=== PATIENT | female | born 1945 | race Caucasian/White ===

== ENCOUNTER → 2017-03-25 | Outpatient (CLI) | payer OTHER, MEDICARE | LOC: FIMAGING 08:18 | PROVIDERS: ATTEND Otolaryngology | DX: K44.9 Diaphragmatic hernia without obstruction or gangrene (principal); K21.0 Gastro-esophageal reflux disease with esophagitis ==

== ENCOUNTER 2017-06-20 06:53 | Day surgery (SDC) | payer OTHER, MEDICARE ==
[~2017-06-20 06:53] MED LIST: VANCOMYCIN 1 GM in NS 250 ML IV ONE
[2017-06-20] MEDS ORDERED: LIDOCAINE 1% 300 MG/30 ML SDV ONE ×2 (07:36→09:50)
[2017-06-20] MEDS ORDERED: LR 1,000 ML IV ONE ×2 (07:38→07:40)
[2017-06-20] MEDS ORDERED: LIDOCAINE 1% 2 ML INJ ID PRN (07:38)
[2017-06-20 07:54] VITALS: PULSE 71
[2017-06-20] MEDS ORDERED: VANCOMYCIN 1 GM in NS 250 ML IV ONE (09:00)
[2017-06-20] MEDS ORDERED: VANCOMYCIN HCL/NORMAL SALINE 250 ML IV ONE (09:00)
--- NOTE | 2017-06-20 09:24 | PDHPUP ---
History & Physical Update H&P update statement: This history and physical update is based on an assessment of the patient which was completed after admission or registration (within 24 hours), but prior to the surgery/procedure. H&P update: H&P reviewed & patient examined, no change in patient's condition since H&P completed
[2017-06-20] MEDS ORDERED: DEXAMETHASONE 4 MG/ML VIAL IVP ONE (09:44)
[2017-06-20] MEDS ORDERED: BUPIVACAINE/EPI 0.5% 30 ML SDV ONE (09:50)
[2017-06-20] MEDS ORDERED: MIDAZOLAM 2 MG/2 ML VIAL IVP ONE (09:57)
--- NOTE | 2017-06-20 09:57 | PDANEPAE ---
ANE Past Medical History - Cardiovascular History Hx Hypertension: No Hx Arrhythmias: No Hx Chest Pain: No Hx Coronary Artery / Peripheral Vascular Disease: No Hx CHF / Valvular Disease: No Hx Palpitations: No - Pulmonary History Hx COPD: No Hx Asthma/Reactive Airway Disease: No Hx Recent Upper Respiratory Infection: No Hx Oxygen in Use at Home: No Hx Sleep Apnea: No Sleep Apnea Screening Result - Last Documented: Negative - Neurologic History Hx Cerebrovascular Accident: No Hx Seizures: No Hx Dementia: No Neurologic History Comment: hx of neck fusion - Endocrine History Hx Diabetes: Yes Endocrine History Comment: pre-diabetic on metformin - Renal History Hx Renal Disorders: No - Liver History Hx Hepatic Disorders: No - Neurological & Psychiatric Hx Hx Neurological and Psychiatric Disorders: No - Cancer History Hx Cancer: No - Congenital Disorder History Hx Congenital Disorders: No - GI History Hx Gastrointestinal Disorders: Yes Gastrointestinal History Comment: hx of bowel obstruction. reflux- uses antacid prn. hiatal hernia - Other Health History Other Health History: wears glasses - Chronic Pain History Chronic Pain: No - Surgical History Prior Surgeries: bilateral rtc. neck fusion. foot surgeries. bowel obstruction repair. appy. tonsillectomy ANE Review of Systems Review of Systems: - Exercise capacity METS (RN): 4 METS ANE Patient History - Allergies Allergies/Adverse Reactions: azithromycin Allergy (Verified 06/16/17 11:20) itchy erythromycin base Allergy (Verified 06/16/17 11:20) nausea and disorientation morphine Allergy (Verified 06/16/17 11:20) makes me anxious and crawl the fournier Penicillins Allergy (Verified 06/16/17 11:20) many years ago tops of hands and feet- rash tetracycline Allergy (Verified 06/16/17 11:20) measles on whole body - Home Medications Home Medications: Herbals/Supplements -Info Only 06/16/17 [Last Taken 06/16/17] Metformin HCl 06/16/17 [Last Taken 06/16/17] - NPO status NPO Since - Liquids (Date): 06/19/17 NPO Since - Liquids (Time): 22:00 NPO Since - Solids (Date): 06/19/17 NPO Since - Solids (Time): 22:00 - Smoking Hx Smoking Status: Never smoked - Family Anes Hx Family Hx Anesthesia Complications: none ANE Labs/Vital Signs - Labs Result Diagrams: 06/20/17 07:52 - Vital Signs Blood Pressure: 107/69 Heart Rate: 71 Respiratory Rate: 96 Height: 154.94 cm Weight: 53.07 kg ANE Physical Exam - Airway Neck exam: FROM Mallampati Score: Class 1 Mouth exam: normal dental/mouth exam - Pulmonary Pulmonary: no respiratory distress - Cardiovascular Cardiovascular: regular rate and rhythym - ASA Status ASA Status: II ANE Anesthesia Plan Anesthesia Plan: GA w LMA
[2017-06-20] MEDS ORDERED: fentaNYL 100 MCG/2 ML INJ ONE (10:03)
[2017-06-20] MEDS ORDERED: PROPOFOL 200 MG/20 ML VIAL ONE (10:04)
[2017-06-20] MEDS ORDERED: LIDOCAINE 2% 5 ML SDV ONE (10:19)
[2017-06-20] MEDS ORDERED: HYDROCODONE/APAP 5/325 TAB PO PRN (11:15)
[2017-06-20] MEDS ORDERED: IBUPROFEN 600 MG TAB PO PRN (11:17)
[2017-06-20] MEDS ORDERED: ACETAMINOPHEN 500 MG TAB PO PRN (11:17)
--- NOTE | 2017-06-20 11:19 | POSTOPPROG ---
Post Op Note Date of Operation: 06/20/17 Surgeon: Felix Covarrubias (, FACS) Anesthesiologist: Harrison Lee Anesthesia: LMA Pre-op Diagnosis: left breast Ca++ Post-op Diagnosis: same Procedure: left excisional breast bx with mammo needle loc Findings: Ca++ confirmed Inf/Abcess present in the surg proc area at time of surgery?: No Complications: none
[2017-06-20] MEDS ORDERED: NALOXONE HCL 0.4 MG/ML INJ IVP PRN ×2 (11:57→11:59)
[2017-06-20] MEDS ORDERED: PROMETHAZINE HCL 25 MG/ML INJ IVP PRN (11:57)
[2017-06-20] MEDS ORDERED: LR 500 ML IV PRN (11:57)
[2017-06-20] MEDS ORDERED: fentaNYL 100 MCG/2 ML INJ IVP PRN (11:57)
--- NOTE | 2017-06-20 11:57 | POSTANESTH ---
Post Anesthetic Evaluation Cardiovascular Status: Normal, Stable Respiratory Status: Normal, Stable Level of Consciousness/Mental Status: Can Participate in Eval Pain Control: Adequate, Prn Tx Ordered Nausea/Vomiting Control: Adequate, Prn Tx Ordered Complications Possibly Related to Anesthesia: None Noted
[2017-06-20] MEDS ORDERED: OXYCODONE/APAP 5/325 TAB PO PRN (11:59)
[2017-06-20] MEDS ORDERED: HYDROmorphONE/DILAUDID 1 MG/ML INJ IVP PRN (11:59)
[2017-06-20 12:41] VITALS: RESP 16
--- NOTE | 2017-06-20 13:20 | GOP ---
[f rep st] OPERATIVE REPORT DATE OF OPERATION: 06/20/2017 SURGEON: Felix Covarrubias MD, FACS ANESTHESIA: General by laryngeal mask. ANESTHESIOLOGIST: Santiago Aguilar MD PREOPERATIVE DIAGNOSIS: Left breast microcalcifications, indeterminate. POSTOPERATIVE DIAGNOSIS: Left breast microcalcifications, indeterminate. PROCEDURE PERFORMED: Left excisional breast biopsy with mammogram guided needle localization. FINDINGS: Microcalcifications confirmed within the specimen by specimen mammogram. ESTIMATED BLOOD LOSS: 5 cc. DESCRIPTION OF PROCEDURE: After informed consent was obtained, the patient was brought to the operating room and placed under light general anesthesia. Left breast was prepped and draped in usual fashion. Before proceeding, a time-out and identification of the patient was performed. The left breast had been previously needle localized by mammogram per Dr. Garcia and she had a Kopan's wire exiting the breast at approximately 12: 30 position 6 cm from the areolar border. The planned incision site was marked in the skin with a marking pen, infiltrated with 0.25% Marcaine, incised in a curvilinear fashion between the areolar border and the wire entry site. Dissection in the subcutaneous plane was performed with cautery. The wire was intercepted. The breast tissue around the shaft of the wire was excised sharply with hemostasis secured with cautery. The specimen was removed from the field and submitted for specimen mammogram. It appeared grossly to be benign fibrocystic tissue. Hemostasis was secured within the cavity. While we were waiting for the results of the specimen mammogram, the subcutaneous tissues were approximated with 3-0 Vicryl suture, skin was closed with 5-0 Monocryl suture in a subcuticular fashion. Dr. Garcia reported the calcifications to be within the specimen. Final Steri-Strips and sterile dressings were applied. The patient was returned extubated to the recovery room in satisfactory condition. Needle, sponge, and instrument count correct. IMAGING PHYSICIAN: Raymundo Garcia MD COMPLICATIONS: None. /[id number]/MODL MTDD
[2017-06-20 13:40] VITALS: BP 98/59; O2SAT 93
[2017-06-20 13:45] VITALS: TEMP 96.8
== END 2017-06-20 14:21 | disposition home or self-care (01) ==
LOC: FSGY 06:53
PROVIDERS: ATTEND Surgery
PROC: 0HBU0ZZ Excision of Left Breast, Open Approach (ICD-10-PCS; principal; 2017-06-20 09:30)
DX: C50.812 Malignant neoplasm of overlapping sites of left female breast (principal); R73.03 Prediabetes; Z98.1 Arthrodesis status; Z79.84 Long term (current) use of oral hypoglycemic drugs
CPT/HCPCS: J0171; J1100; J2250; J2704; J3010; J3370

== ENCOUNTER 2017-07-11 10:18 | Observation (INO) | payer OTHER, MEDICARE ==
[2017-07-11] MEDS ORDERED: LR 1,000 ML IV SCH ×2 (11:08→18:00)
[2017-07-11] MEDS ORDERED: CLINDAMYCIN 900 MG/DEXTROSE 50 ML IV ONE (11:08)
[2017-07-11] MEDS ORDERED: DEXAMETHASONE 4 MG/ML VIAL IVP ONE (11:30)
[2017-07-11] MEDS ORDERED: *PHM DO NOT USE-DEXAMETHASONE 0.2 MG/ML IV PED/NEWBORN SYR IV ONE (12:00)
[2017-07-11] MEDS ORDERED: BUPIVACAINE 0.25% 30 ML SDV ONE (12:52)
[2017-07-11] MEDS ORDERED: BUPIVACAINE/EPI 0.5% 30 ML SDV ONE (12:52)
--- NOTE | 2017-07-11 13:51 | PDANEPAE ---
ANE Past Medical History - Cardiovascular History Hx Hypertension: No Hx Arrhythmias: No Hx Chest Pain: No Hx Coronary Artery / Peripheral Vascular Disease: No Hx CHF / Valvular Disease: No Hx Palpitations: No - Pulmonary History Hx COPD: No Hx Asthma/Reactive Airway Disease: No Hx Recent Upper Respiratory Infection: No Hx Oxygen in Use at Home: No Hx Sleep Apnea: No Sleep Apnea Screening Result - Last Documented: Negative - Neurologic History Hx Cerebrovascular Accident: No Hx Seizures: No Hx Dementia: No Neurologic History Comment: hx of neck fusion - Endocrine History Hx Diabetes: No Endocrine History Comment: pre-diabetic on metformin - Renal History Hx Renal Disorders: No - Liver History Hx Hepatic Disorders: No - Neurological & Psychiatric Hx Hx Neurological and Psychiatric Disorders: No - Cancer History Hx Cancer: Yes Cancer History Comment: new dx - Congenital Disorder History Hx Congenital Disorders: No - GI History GERD: mild Hx Gastrointestinal Disorders: Yes Gastrointestinal History Comment: hx of bowel obstruction. reflux- uses antacid prn. bowel obstruction repaired. hiatal hernia - Other Health History Other Health History: none - Chronic Pain History Chronic Pain: No - Surgical History Prior Surgeries: bilateral rtc. neck fusion. foot surgeries. bowel obstruction repair. appy. tonsillectomy ANE Review of Systems Review of Systems: - Exercise capacity METS (RN): 4 METS ANE Patient History - Allergies Allergies/Adverse Reactions: vancomycin Allergy (Severe, Verified 07/09/17 10:24) Red Man Syndrome azithromycin Allergy (Verified 06/16/17 11:20) itchy erythromycin base Allergy (Verified 06/16/17 11:20) nausea and disorientation morphine Allergy (Verified 06/16/17 11:20) makes me anxious and crawl the fournier Penicillins Allergy (Verified 06/16/17 11:20) many years ago tops of hands and feet- rash tetracycline Allergy (Verified 06/16/17 11:20) measles on whole body - Home Medications Home Medications: Herbals/Supplements -Info Only 06/16/17 [Last Taken 07/07/17] - NPO status NPO Since - Liquids (Date): 07/11/17 NPO Since - Liquids (Time): 09:00 NPO Since - Solids (Date): 07/10/17 NPO Since - Solids (Time): 20:00 - Anes Hx Anes Hx: no prior problems - Smoking Hx Smoking Status: Never smoked - Family Anes Hx Family Hx Anesthesia Complications: none ANE Labs/Vital Signs - Vital Signs Blood Pressure: 107/70 Heart Rate: 74 Respiratory Rate: 16 O2 Sat (%): 97 Height: 154.94 cm Weight: 51.71 kg ANE Physical Exam - Airway Neck exam: FROM Mallampati Score: Class 1 Mouth exam: normal dental/mouth exam - Pulmonary Pulmonary: no respiratory distress, no rales or rhonchi, clear to auscultation - Cardiovascular Cardiovascular: regular rate and rhythym, no murmur, rub, or gallop - ASA Status ASA Status: II ANE Anesthesia Plan Anesthesia Plan: GA w LMA
[2017-07-11] MEDS ORDERED: DEXAMETHASONE 4 MG/ML VIAL ONE (14:28)
[2017-07-11] MEDS ORDERED: fentaNYL 250 MCG/5 ML INJ ONE (14:28)
[2017-07-11] MEDS ORDERED: ONDANSETRON 4 MG/2 ML VIAL ONE (14:28)
[2017-07-11] MEDS ORDERED: LIDOCAINE 2% 5 ML SDV ONE ×2 (14:28→16:31)
[2017-07-11] MEDS ORDERED: PROPOFOL 200 MG/20 ML VIAL ONE (14:28)
[2017-07-11] MEDS ORDERED: LIDOCAINE 2% JELLY 5 ML TUBE ONE (14:29)
[2017-07-11] MEDS ORDERED: PHENYLEPHRINE HCL 100 MCG/ML SYR ONE (15:06)
[2017-07-11] MEDS ORDERED: HYDROCODONE/APAP 5/325 TAB PO PRN (17:10)
[2017-07-11] MEDS ORDERED: oxyCODONE IR 5 MG TAB PO PRN (17:10)
[2017-07-11] MEDS ORDERED: fentaNYL 100 MCG/2 ML INJ IVP PRN (17:10)
[2017-07-11] MEDS ORDERED: LR 500 ML IV PRN (17:10)
[2017-07-11] MEDS ORDERED: ONDANSETRON 4 MG/2 ML VIAL IVP PRN (17:10)
[2017-07-11] MEDS ORDERED: PROMETHAZINE HCL 25 MG/ML INJ IVP PRN (17:10)
[2017-07-11] MEDS ORDERED: ACETAMINOPHEN 500 MG TAB PO PRN (17:10)
[2017-07-11] MEDS ORDERED: NALOXONE HCL 0.4 MG/ML INJ IVP PRN (17:10)
--- NOTE | 2017-07-11 17:37 | POSTANESTH ---
Post Anesthetic Evaluation Cardiovascular Status: Other, See Comment (Slightly hypertensive on arrival (161 /99). Denies significant pain. Will observe for now.) Respiratory Status: Normal, Stable, Similar to Pre-op Cond. Level of Consciousness/Mental Status: Can Participate in Eval, Mildly Sleepy, Arousable Pain Control: Adequate, Prn Tx Ordered Nausea/Vomiting Control: Adequate, Prn Tx Ordered Complications Possibly Related to Anesthesia: None Noted
--- NOTE | 2017-07-11 17:39 | POSTOPPROG ---
Post Op Note Date of Operation: 07/11/17 Surgeon: Felix Covarrubias (, FACS) Anesthesia: GET(General Endotracheal), LMA Pre-op Diagnosis: left breast DCIS Procedure: bilateral mastectomy/bilateral sentinel node biopsy Findings: 2 sentinel nodes on each side/negative by frozen Inf/Abcess present in the surg proc area at time of surgery?: No Drains: Tj Mendez (x 2 bilateral) Specimen(s): right mastectomy/SLN x2 left mastectomy/SLN x 2
[2017-07-11] MEDS ORDERED: ACETAMINOPHEN/CODEINE 300/30MG TAB PO PRN (17:49)
--- NOTE | 2017-07-11 18:59 | GOP ---
[f rep st] OPERATIVE REPORT DATE OF OPERATION: 07/11/2017 SURGEON: Felix Covarrubias MD, FACS ANESTHESIA: General by laryngeal mask. ANESTHESIOLOGIST: Felix Winkler MD PREOPERATIVE DIAGNOSIS: 1. Left breast ductal carcinoma in situ. 2. Right breast microcalcifications. POSTOPERATIVE DIAGNOSIS: 1. Left breast ductal carcinoma in situ. 2. Right breast microcalcifications. PROCEDURE PERFORMED: Bilateral total mastectomy and bilateral sentinel lymph node mapping and superficial axillary lymph node dissection. FINDINGS: Two sentinel nodes excised from each side negative for evidence of metastatic malignancy by frozen section. Permanent section pending. Right and left mastectomy specimen submitted after orientation with sutures for permanent section. ESTIMATED BLOOD LOSS: 100 mL. DESCRIPTION OF PROCEDURE: After informed consent was obtained, the patient was brought to the operating room and placed under general anesthesia. The chest wall and neck and abdomen were prepped and draped in the usual sterile fashion. Before proceeding, a time-out and identification of the patient was performed. 0.25% Marcaine plain was used to perform an intercostal block on the right side , injecting a total of 3-4 mL of 0.25% Marcaine into the intercostal space of the 4th, 5th, and 6th ribs. Mastectomy was performed through a transversely oriented elliptical incision encompassing the nipple-areolar complex. After the incision had been made with a scalpel, flaps were elevated using cautery, cephalad to the infraclavicular fossa, inferiorly to the inframammary fold, laterally to the latissimus border, and medially to the sternal border. Subsequently, the breast tissue was from the underlying pectoralis muscle starting medially and extending laterally. Branches of the intercostal perforators were hemoclipped and divided. The breast was from the pectoralis laterally and dissected along the serratus to the latissimus and cephalad to the axilla. The axillary fascia was incised and the Neoprobe was brought onto the field in a sterile sheath and used to interrogate the axillary nodes. Two axillary sentinel nodes were identified. These were removed after lymphovascular structures were hemoclipped and divided. These were submitted for frozen section. The axillary tail was then dissected from the remainder of the axilla. Larger vessels were hemoclipped and divided and the specimen was removed from the field. A silk suture was used to orient the specimen such that the short suture was the superior edge of the skin paddle and the long suture was in the axilla. Turning to the left side, a mirror-image incision was made and flaps elevated in a similar fashion to the sternal border medially, superiorly to the infraclavicular fossa, inferiorly to the inframammary fold, and laterally to the latissimus border. The breast was from the underlying pectoralis using cautery dissection, hemoclipping intercostal tile shader branches. The breast was dissected laterally to the latissimus border and cephalad to the axilla. The axillary fascia was incised. The Neoprobe was again used to identify the sentinel nodes, which presented in the lower level 1 chain. As these nodes were identified, they were isolated, dissected from the surrounding fibrofatty tissue of the axilla. Lymphovascular structures were hemoclipped and divided and the nodes were removed from the field. The breast was also amputated on the left side between the axillary tail and the axillary nodes. The specimen was tagged for orientation in a similar fashion and submitted for permanent section. Both sides of the chest wall were inspected for hemostasis, which was secured with spot cautery and hemoclips. Two drains were brought through separate stab wounds inferolaterally on each side, a 10-Indonesian round and a 10-Indonesian flat drain placed into the axilla. The subcutaneous tissues were approximated with interrupted 3-0 Monocryl suture. Skin was closed with edgar. After we received the report of the sentinel nodes being negative, sterile dressings were applied. Patient was extubated and returned to the recovery room in satisfactory condition. Needle, sponge, and instrument counts were correct. COMPLICATIONS: None. /[id number]/MODL MTDD
[2017-07-11] MEDS: CLINDAMYCIN 600 MG/DEXTROSE 50 ML IV SCH (22:15)
[2017-07-12] MEDS: CLINDAMYCIN 600 MG/DEXTROSE 50 ML IV SCH (05:55)
[2017-07-12] MEDS ORDERED: ENOXAPARIN 30 MG/0.3 ML SYR SC SCH (09:00)
--- NOTE | 2017-07-12 09:14 | PDDCSUM ---
Discharge Summary Discharge Summary: DOA: 07/11/17 (observation status) DOD: 07/12/17 DC diagnosis: left breast DCIS Procedure: bilateral mastectomy/sentinel node biopsy 07/11/17 Course: Reena was admitted for bilateral mastectomy, performed on the day of admission with bilateral sentinel node biopsy. Post op she had no significant pain and did not take any narcotic analgesics after leaving the PACU. On the morning after surgery her surgical site appeared uncomplicated, dressings were changed and she was instructed in drain care. She will follow up in my office in 72 hours for drain check. Her final pathology report is pending. Condition at the time of discharge satisfactory. DC Meds: Tylenol #3 (#14) Romero Covarrubias MD, FACS
[2017-07-12 12:25] VITALS: BP 149/98
--- NOTE | 2017-07-12 17:40 | ASDISCHSUM ---
Discharge Information Plan Status:Home with No Needs Medically Cleared to Leave:07/12/2017 Discharge Date:07/12/2017 01:20 PM CM D/C Disposition:Home, Routine, Self-Care ADT D/C Disposition:Home, Routine, Self-Care Projected Discharge Date:07/12/2017 01:20 PM Transportation at D/C:Family Discharge Delay Reason: Follow-Up Date:07/12/2017 01:20 PM Discharge Slot:2 - 12:01 pm - 18:00 pm Final Diagnosis:Left breast DCIS, bilateral mastectomy, sentinel node dissection Placement Information Patient Contact Information Contact Name:JAVIER Relationship:Daughter Address: Work Phone: City: [facility] Phone: State/[employer] Code: Email: Financial Information Financial Class:Medicare Primary Plan Desc:MEDICARE OUTPATIENT Primary Plan Number:[id number] Secondary Plan Desc:ALEXANDRA/JEFFREY SUPPLEMENT Secondary Plan Number:[id number] Assessment Information LACE LACE Length of stay for Answers: 1 day current admission Acuity / Level of Answers: No Care: Did the patient have an inpatient admission? Comorbidities - select Answers: Other Notes: Breast cancer all that apply # of Emergency department Answers: 0 visits in the last 6 months Score: 2 Date Signed: 07/12/2017 05:28 PM Electronically Signed By:Caty Justice RN [facility] CM Progress Note CM Note CM Note Notes: Pt admitted for left breast DCIS, s/p bilateral mastectomy and sentinel node dissection. Per MD notes, pt tolerated procedure well and will discharge home independently with no identified needs today. Pt to follow up in 72 hours, as directed. No MALINI/KEILA signed, pt stay <24 hrs. CM available for any further issues or concerns. Current Discharge Plan: Home independently Date Signed: 07/12/2017 05:39 PM Electronically Signed By:Caty Justice RN Intervention Information
== END 2017-07-12 13:20 | disposition home or self-care (01) ==
LOC: F3N 10:18 → F1N 10:18
PROVIDERS: ADMIT Surgery; ATTEND Surgery
DX: D05.12 Intraductal carcinoma in situ of left breast (principal); R92.1 Mammographic calcification found on diagnostic imaging of breast
CPT/HCPCS: 19307; 71045; 78195; 97161; A9520; G8978; G8979; G8980; J1100; J1650; J2370; J2405; J2704; J3010

== ENCOUNTER → 2018-04-15 | Outpatient (CLI) | payer OTHER, MEDICARE | LOC: FIMAGING 14:34 | PROVIDERS: ATTEND Surgery | DX: M54.12 Radiculopathy, cervical region (principal); Z90.11 Acquired absence of right breast and nipple; Z90.12 Acquired absence of left breast and nipple; Z98.1 Arthrodesis status ==

== ENCOUNTER → 2018-07-22 | Outpatient (CLI) | payer OTHER, MEDICARE | LOC: EMCIMAGING 14:00 | PROVIDERS: ATTEND Neurological Surgery | DX: M51.36 Other intervertebral disc degeneration, lumbar region (principal); M43.16 Spondylolisthesis, lumbar region; M48.02 Spinal stenosis, cervical region; M48.061 Spinal stenosis, lumbar region without neurogenic claudication | CPT/HCPCS: 72110-PN; 72141-PN; 72148-PN ==